=== PATIENT | male | born 1975 | race African-American/Black ===

== ENCOUNTER 2017-11-03 09:12 | Emergency (ER) | payer SELFPAY ==
[2017-11-03 09:28] VITALS: BP 147/88; PULSE 86; TEMP 98.5; BMI 32.3
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
== END 2017-11-03 10:14 | disposition home or self-care (01) ==
LOC: JERFT 09:12
PROC: 2W3CX1Z Immobilization of Right Lower Arm using Splint (ICD-10-PCS; principal; 2017-11-03)
DX: S62.164A Nondisplaced fracture of pisiform, right wrist, initial encounter for closed fracture (principal); Y04.2XXA Assault by strike against or bumped into by another person, initial encounter; Y93.89 Activity, other specified; Y92.89 Other specified places as the place of occurrence of the external cause; Y99.8 Other external cause status
CPT/HCPCS: 73110-TC-RT-FY; 73130-TC-RT-FY; 99282-25